=== PATIENT | male | born 1990 | race Caucasian/White ===

== ENCOUNTER 2017-07-06 14:54 | Emergency (ER) | payer SELFPAY ==
[~2017-07-06] VITALS: Ht 180.3 cm; Wt 181.4 kg
--- OUTSIDE RECORDS SUMMARY | 2017-07-06 15:00 | XMS REPORT | Continuity of Care Document ---
Author Author [facility] Address Unknown Phone Unavailable Allergies There is no data. Medications There is no data. Problems Date Dx Coded Attending Type Code Diagnosis Diagnosed By 02/24/2014 LINDSAY BOLES DO 389.9 HEARING LOSS UNSPEC 02/24/2014 LINDSAY BOLES DO 401.1 HYPERTENSION, BENIGN ESSENTIAL 02/24/2014 LINDSAY BOLES DO 389.9 HEARING LOSS UNSPEC 02/24/2014 LINDSAY BOLES DO 401.1 HYPERTENSION, BENIGN ESSENTIAL 02/24/2014 ADAM LIMA APRN 389.9 HEARING LOSS UNSPEC 02/24/2014 ADAM LIMA APRN 401.1 HYPERTENSION, BENIGN ESSENTIAL 02/24/2014 ADAM LIMA APRN 389.9 HEARING LOSS UNSPEC 02/24/2014 ADAM LIMA APRN 401.1 HYPERTENSION, BENIGN ESSENTIAL Procedures Code Description [place] [address] A1C (IN-HOUSE) 02/24/2014 Adam Hooker 03/17/2014 Adam Hooker 03/24/2014 Results There is no data. Encounters ACCT No. Visit Date/Time Discharge Status Pt. Type Provider Facility Loc./Unit Complaint [id number] 04/21/2014 11:31:00 04/21/2014 23:59:59 CLS Outpatient ADAM LIMA APRN [id number] 03/24/2014 11:30:00 03/24/2014 23:59:59 CLS Outpatient ADAM LIMA APRN [id number] 03/10/2014 11:02:00 03/10/2014 23:59:59 CLS Outpatient LINDSAY BOLES DO [id number] 02/24/2014 10:54:00 02/24/2014 23:59:59 [place] [id number] 07/06/2017 13:25:00 ACT Outpatient ADAM LIMA APRN [facility]
[2017-07-06] MEDS ORDERED: IBUPROFEN 800 MG (MOTRIN) TAB PO STA (15:16)
--- NOTE | 2017-07-06 16:22 | ED EENT ---
History of Present Illness General Chief Complaint: Dental Problems/Pain Stated Complaint: DENTAL PAIN/GUMS SWELLING Nursing Triage Note: c/o dental pain to right upper jaw. Considerable swelling noted with caries to right upper gum in oral cavity. Source: patient Exam Limitations: no limitations History of Present Illness Date Seen by Provider: July 06, 2017 Time Seen by Provider: 16:22 Initial Comments 27-year-old male patient presents to the emergency department complaints of right upper dental pain. Denies fevers, but does complain of swelling and drainage. patient's BP noted to be 194/100 mmHg. patient states he has a h/o HTN and is supposed to be on antihypertensives, but has not taken them for "a long time". Timing/Duration: gradual Location: dental Prearrival Treatment: over the counter meds Modifying Factors: Worse With Other (worse with palpation) Allergies and Home Medications Allergies Coded Allergies: No Known Drug Allergies (Unverified , 07/06/17) Home Medications Amoxicillin 500 Mg Capsule, 1,000 MG PO TID Prescribed by: KIRK WILKERSON on 07/06/17 1713 Tramadol HCl 50 Mg Tablet, 50 MG PO Q4H PRN for pain Prescribed by: KIRK WILKERSON on 07/06/17 1713 Patient Home Medication List Home Medication List Reviewed: Yes Review of Systems Constitutional: No chills, No fever Eyes: No Symptoms Reported Ears: No Symptoms Reported Nose: no symptoms reported Mouth: see HPI Throat: no symptoms reported Respiratory: no symptoms reported Cardiovascular: no symptoms reported Gastrointestinal: no symptoms reported Skin: no symptoms reported Neurological: No Symptoms Reported All Other Systems Reviewed Negative Unless Noted: Yes (Negative excepted noted.) Past Hzrezaa-Zbmgce-Xxbvyq Hx Past Med/Social Hx: Reviewed Nursing Past Med/Soc Hx Patient Social History Alcohol Use: Denies Use Recreational Drug Use: No Smoking Status: Never a Smoker Recent Foreign Travel: No Contact w/Someone Who Travel: No Recent Infectious Disease Expo: No Past Medical History Respiratory: No Cardiac: Yes Hypertension Neurological: No Gastrointestinal: No Endocrine: No Family Medical History Reviewed Nursing Family Hx Physical Exam Vital Signs General Appearance: WD/WN, no apparent distress Eyes: bilateral eye normal inspection, bilateral eye PERRL, bilateral eye EOMI Ears: bilateral ear auricle normal, bilateral ear canal normal, bilateral ear TM normal Nose: normal inspection Mouth/Throat: pharynx normal, dental tenderness (right upper dental caries and tenderness with a small amount of purulent drainage.); No excessive drooling, No mandibular swelling, No maxillary swelling Neck: non-tender, full range of motion, supple, normal inspection Cardiovascular: normal peripheral pulses, regular rate, rhythm, no murmur Respiratory: lungs clear, normal breath sounds, no respiratory distress, no accessory muscle use Neurologic/Psychiatric: alert, normal mood/affect, oriented x 3 Skin: normal color, warm/dry Progress/Results/Core Measures Results/Orders My Orders Medications Given in ED Vital Signs/I&O Blood Pressure Mean: 131 Departure Communication (Admissions) dental abscess self drained. patient reports feeling better after it drained. patient given 1 gram of rocephin in the ED. plan for dsch to home. Impression Primary Impression: Dental abscess Disposition: HOME, SELF-CARE Condition: Improved Departure-Patient Inst. Decision time for Depature: 17:11 [place]: [facility] [place] Primary Care Physician Patient Instructions: Tooth Abscess (DC) Add. Discharge Instructions: All discharge instructions reviewed with patient and/or family. Voiced understanding. Medications as instructed. Tylenol extra strength over-the- counter as directed for pain. Ibuprofen 800 mg by mouth every 8 hours as needed for pain. Follow-up with the dentist of your choice Saturday or Saturday for recheck as an outpatient. Call for appointment time Saturday. Follow -up with your family practitioner for recheck as an outpatient. Return to the emergency department for worsened symptoms or any other concerns. Lidocaine with benzocaine gauze pads: Please 1 pad between the affected teeth and bite down gently for proximally 5-10 minutes. Then remove the pad. You may repeat this process 4 times daily as needed for dental pain. Do not lay down with the pad in her mouth, follow asleep with the pad in mouth, or swallow the gauze pad do to risk of choking, bowel obstruction, and . Scripts Amoxicillin (Amoxicillin) 500 Mg Capsule 1000 MG PO TID, #60 CAP 0 Refills Prov: KIRK WILKERSON 07/06/17 Tramadol HCl (Tramadol HCl) 50 Mg Tablet 50 MG PO Q4H PRN for pain, #14 TAB 0 Refills Prov: KIRK WILKERSON 07/06/17 KRIK WILKERSON July 06, 2017 16:22
[2017-07-06] MEDS ORDERED: ACETAMINOPHEN 500 MG TAB (TYLENOL) PO STA (16:50)
[2017-07-06] MEDS ORDERED: LIDOCAINE 2% VISCOUS 15 ML UDC PO ONE (17:00)
[2017-07-06] MEDS ORDERED: BENZOIN TP ONE (17:00)
[2017-07-06] MEDS ORDERED: cefTRIAXone 1 GM (ROCEPHIN) VIAL IM ONE (17:00)
[2017-07-06] MEDS ORDERED: LIDOCAINE 1% INJ 50 ML (XYLOCAINE) VIAL IJ ONE (17:00)
[2017-07-06] MEDS ORDERED: TRAM50TA2 PO (17:13)
[2017-07-06] MEDS ORDERED: AMOX500C2 PO (17:13)
[2017-07-06 18:10] VITALS: BP 190/88
== END 2017-07-06 18:10 | disposition home or self-care (01) ==
LOC: ER 14:57
DX: K04.7 Periapical abscess without sinus (principal)
CPT/HCPCS: 96372; 99284